=== PATIENT | female | born 1990 | race Caucasian/White ===

== ENCOUNTER 2024-04-21 17:37 | Emergency (ER) | payer SELFPAY ==
[2024-04-21 19:46] LABS: #Basophils 0.04 10x3/uL (0.0-0.2); #Eosinophils 0.44 10x3/uL (0.0-0.5); #Monocytes 0.63 10x3/uL (0.0-1.1); #Neutrophils 6.48 10x3/uL (1.5-8.4); %Basophils 0.4 % (0.0-2.0); %Eosinophils 4.3 % (0.0-6.0); %Lymphocytes 26.3 % (18.0-47.0); %Monocytes 6.1 % (0.0-10.0); %Neutrophils 62.7 % (40.0-75.0); Hematocrit 41.2 % (34.9-44.5); Hemoglobin 13.9 g/dL (12.0-15.5); Mean Corpuscular HGB CONC 33.7 g/dL (32.0-36.0); Mean Corpuscular Hemoglobin 30.5 pg (27.0-33.0); Mean Corpuscular Volume 90.5 fL (81.6-98.3); Mean Platelet Volume 10.3 fL (7.4-10.4); Platelet Count 272 10x3/uL (150-450); RBC Distribution Width 12.9 % (11.5-14.5); Red Blood Cell (RBC) Count 4.55 10x6/uL (3.90-5.03); White Blood Cell (WBC) Count 10.33 10x3/uL (3.5-10.5)
== END 2024-04-21 22:41 | disposition home or self-care (01) ==
LOC: CSHERS 17:37
DX: O20.0 Threatened abortion (principal); Z3A.08 8 weeks gestation of pregnancy
CPT/HCPCS: 36415; 76856; 84702; 85025